=== PATIENT | male | born 1940 | race Caucasian/White ===

== ENCOUNTER 2016-11-15 10:19 | Observation (INO) | payer MEDICARE, MEDICAID ==
[~2016-11-15] VITALS: Ht 167.6 cm; Wt 99.4 kg
[2016-11-15] VITALS (14 sets, daily range): BP systolic 123–168; BP diastolic 71–103
[~2016-11-15 10:19] MED LIST: ARICEPT10 MG PO; ATENOLOL50 MG PO; AVODART0.5 MG PO; ELIGARD45 MG SC; FLOMAX 0.4MG C0.4 MG PO; LASIX 40MG. TAB40 MG; LISINOPRIL 10MG10 MG PO; METOPROLOL 25 M25 MG PO; OXCARBAZEPINE300 M1 PO; OXYBUTYNIN5 MG PO; VITAMIN D1000 IU PO; VITAMIN D32000 I2 PO; VITAMIN D35000 IU PO; VYTORIN 10 MG-11 TAB PO; VYTORIN 10 MG-21 TAB PO; WARFARIN SOD5 MG PO; WARFARIN SODIUM4 MG PO; ZITHROMAX Z-PA250 M1 PO
--- OUTSIDE RECORDS SUMMARY | 2016-11-15 10:30 | External Medical Summary Rpt ---
Author Author [facility] Organization [facility] Address Unknown Phone Unavailable Care Team Providers Care Youth Services Librarian Name Role Phone NICHELLE, (REF) PCP [phone] Encounter [facility] [id number] Date(s): 11/12/16 - 11/12/16 [facility] [address] [place] [address]- Discharge Disposition: OP Self Care or Home Attending Physician: MARCELINO DOMINGUEZ -CAT Admitting Physician: MARCELINO DOMINGUEZ -CAT Referring Physician: MARCELINO DOMINGUEZ -CAT Reason for Visit SHORTNESS OF BREATH Vital Signs No data available for this section Problem List No data available for this section Allergies, Adverse Reactions, Alerts No Known Allergies Medications No data available for this section Results No data available for this section Immunizations No data available for this section Procedures No data available for this section Social History No data available for this section Assessment and Plan No data available for this section Hospital Discharge Instructions No data available for this section
--- OUTSIDE RECORDS SUMMARY | 2016-11-15 10:30 | External Medical Summary Rpt ---
Author Author [facility] Organization [facility] Address Unknown Phone Unavailable Care Team Providers Care [employer] Leader Name Role Phone NICHELLE, (REF) PCP [phone] Encounter [facility] [id number] Date(s): 11/12/16 - 11/12/16 [facility] [address] [place] [address]- Discharge Disposition: OP Self Care or Home [...]
--- OUTSIDE RECORDS SUMMARY | 2016-11-15 10:31 | External Medical Summary Rpt ---
Author Author JOHAN Address Unknown Phone [email or web address] Purpose Continuity of Care Document - through 2016
--- OUTSIDE RECORDS SUMMARY | 2016-11-15 10:31 | External Medical Summary Rpt ---
Author Author , JOHAN Mota JOHAN Address Unknown Phone [email or web address] Team Providers Care Application Tester Name Role Phone Fidel Hickman MD, Unavailable Unavailable Fidel Hickman MD Purpose Continuity of Care Document - 09-09-2012 through 2016 Problems Code Diagnosis DOS Provider Status 998.32 998.32 09-09-2012 Jacinto MONTE [facility] OPERATION (SURGICAL) WOUND Allergies, Adverse Reactions, Alerts Type Allergy to substance Adverse Reaction to Substance Substance Reaction Severity INGREDIENT: NO KNOWN Unknown Unknown - NO KNOWN DRUG ALLERGY Vital Signs 09-09-2012 11:37 Name Value Interpretat Reference Comment ion Range Body 98 [degF] Temperature BP 78 mm[Hg] Diastolic BP Systolic 130 mm[Hg] Heart 51 /min Rate/Pulse O2% 96 % Respiratory 20 /min Rate 09-09-2012 11:33 Name Value Interpretat Reference Comment ion Range BP 78 mm[Hg] Diastolic BP Systolic 130 mm[Hg] Heart 51 /min Rate/Pulse O2% 96 % Respiratory 20 /min Rate Procedures Procedure DOS Code Location Performer Comment NONEXCIS 86.28 Fidel Smith WOUND, INFECT, OR BURN Encounters Encounter Start End Date Code Location Performer Type Date Emergency TONG Hickman (ER) 3 11:25 3 11:45 [facility]
--- OUTSIDE RECORDS SUMMARY | 2016-11-15 10:31 | External Medical Summary Rpt ---
Author Author , JOHAN Mota JOHAN Address Unknown Phone [email or web address] Care Team Providers Care Wrapper Sheeter Name Role Phone Fidel Hickman MD, Unavailable Unavailable Fidel Hickman MD Purpose Continuity of Care Document - 09-09-2012 through 2016 Problems Code Diagnosis DOS Provider Status 998.32 998.32 09-09-2012 Jacinto MONTE [facility] OPERATION (SURGICAL) WOUND Allergies, Adverse Reactions, [...] TONG Hickman (ER) 3 11:25 3 11:45 [facility]
--- OUTSIDE RECORDS SUMMARY | 2016-11-15 10:31 | External Medical Summary Rpt ---
Author Author JOHAN Address Unknown Phone [email or web address] Purpose Continuity of Care Document - through 2016
--- OUTSIDE RECORDS SUMMARY | 2016-11-15 10:33 | External Medical Summary Rpt ---
Demographics Preferred Language Bulgarian Marital Status Unknown Congregation Affiliation Unknown Race Unknown Ethnic Group Unknown Author Author , VANCE PRADO Address Unknown Phone Immunization Unable to retrieve immunization data due to connection failure with Immunization Registry. Please try again later.
--- OUTSIDE RECORDS SUMMARY | 2016-11-15 10:33 | External Medical Summary Rpt ---
Author Author JOHAN Iyer, JOHAN Production Organization [employer] Address Unknown Phone Unavailable Results Basic metabolic panel in Blood Observa Value Referen Units Interpr Notes Date tion ce etation Range Urea 7 - 18 mg/dL High No Nov 11 nitrogen informati 2016 [Mass/vol on in 12:42 PM ume] in source Serum or data Plasma Calcium 8.5 - mg/dL Normal No Nov 11 [Mass/vol 10.1 informati 2016 ume] in on in 12:42 PM Serum or source Plasma data Chloride 98 - 107 mmoL/L Normal No Nov 11 [Moles/vo informati 2016 lume] in on in 12:42 PM Serum or source Plasma data Carbon 21.0 - mmoL/L Normal No Nov 11 dioxide, 32.0 informati 2016 total on in 12:42 PM [Moles/vo source lume] in data Serum or Plasma Creatinin 0.70 - mg/dL Normal No Nov 11 e 1.30 informati 2016 [Mass/vol on in 12:42 PM ume] in source Serum or data Plasma Estimated >60 ML/MIN No REFERENCE Nov 11 informati RANGE: 2017 glomerula on in >60 12:42 PM r source ML/MIN/1. filtratio data 73 SQUARE n rate METERSIf (GF this patient is -A merican, then multiply theresult by 1.210. Glucose 74 - 106 mg/dL High No Nov 11 [Mass/vol informati 2016 ume] in on in 12:42 PM Serum or source Plasma data Potassium 3.5 - 5.1 mmoL/L High No Nov 11 informati 2016 [Moles/vo on in 12:42 PM lume] in source Serum or data Plasma Sodium 136 - 145 mmoL/L Low No Nov 11 [Moles/vo informati 2016 lume] in on in 12:42 PM Serum or source Plasma data CBC W Auto Differential panel in Blood Observa Value Referen Units Interpr Notes Date ti ce etation Range Basophils 0 - 0.2 K/MM3 Normal No Nov 11 informati 2016 [#/volume on in 12:42 PM ] in source Blood by data Automated count Basophils 0.1 - 2.0 % Normal No Nov 11 / inform2016 leukocyte on in 12:42 PM s in source Blood by data Automated count Eosinophi 0.0 - 0.4 K/mm3 Normal No Nov 11 ls inform2016 [#/volume on in 12:42 PM ] in source Blood by data Automated count Eosinophi 0.1 - % Normal No Nov 11 ls/100 12.0 inform2016 leukocyte on in 12:42 PM s in source Blood by data Automated count Granulocy 1.3 - 8.0 K/mm3 Normal No Nov 11 samantha inform2016 [#/volume on in 12:42 PM ] in source Blood by data Automated count Granulocy 37.0 - % Normal No Nov 11 samantha/100 80.0 inform2016 leukocyte on in 12:42 PM s in source Blood by data Automated count Hematocri 42.0 - % Low No Nov 11 t [Volume 52.0 informati 2016 on in 12:42 PM Fraction] source of Blood data Hemoglobi 14.1 - g/dL Low No Nov 11 n 18.0 inform2016 [Mass/vol on in 12:42 PM ume] in source Blood data Lymphocyt 0.7 - 4.5 K/mm3 Low No Nov 11 es 2016 [#/volume on in 12:42 PM ] in source Unspecifi data ed specimen by Automated count Lymphocyt 10 - 50 % Normal No Nov 11 es inform2016 [#/volume on in 12:42 PM ] in source Unspecifi data ed specimen by Automated count Erythrocy 27 - 31.2 pg Normal No Nov 11 te mean 2016 corpuscul on in 12:42 PM ar source hemoglobi data n [Entitic mass] Erythrocy 31.8 - g/dl Normal No Nov 11 te mean 35.4 inform2016 corpuscul on in 12:42 PM ar source hemoglobi data n concentra tion [Mass/vol ume] by Automated count Erythrocy 82.2 - fl Normal No Nov 11 te mean 97.8 2016 corpuscul on in 12:42 PM ar volume source [Entitic data volume] by Automated count Monocytes 0.1 - 1.0 K/mm3 Normal No Nov 112016 [#/volume on in 12:42 PM ] in source Blood by data Automated count Monocytes 1.7 - 9.3 % Normal No Nov 11 /100 2016 leukocyte on in 12:42 PM s in source Blood by data Automated count Platelet 7.4 - fl Normal No Nov 11 mean 10.4 2016 volume on in 12:42 PM [Entitic source volume] data in Blood by Automated count Platelets 142 - 424 K/mm3 Normal No Nov 11 informati 2016 [#/volume on in 12:42 PM ] in source Blood data Erythrocy 4.6 - 6.2 M/mm3 Low No Nov 11 samantha informati 2016 [#/volume on in 12:42 PM ] in source Amniotic data fluid Erythrocy 11.5 - % Normal No Nov 11 te 17.5 2016 distribut on in 12:42 PM ion width source [Entitic data volume] by Automated count Leukocyte 4.8 - K/MM3 Low No Nov 11 s 10.8 2016 [#/volume on in 12:42 PM ] in source Blood data INR in Blood by Coagulation assay Observa Value Referen Units Interpr Notes Date tion ce etation Range INR in 0.9 - 1.1 No High INDICATIO Nov 11 Blood by informati N 2017 Coagulati on in 12:42 PM on assay source INR data RANGETHER APY FOR DVT, PE, ATRIAL FIB; 2.0 - 3.0PROPHY LAXIS FOR VTETHERAP Y FOR MECHANICA L HEART 2.5 - 3.5VALVE; PREVENTIO N OF SYSTEMICE MBOLISM SECONDARY TO AMI Prothromb 9.4 - SECONDS High No Nov 11 in time 11.8 informati 2016 (PT) in on in 12:42 PM Platelet source poor data plasma by Coagulati on assay
--- OUTSIDE RECORDS SUMMARY | 2016-11-15 10:33 | External Medical Summary Rpt ---
Demographics Preferred Language French Marital Status Unknown Muslim Affiliation Unknown Race Unknown Ethnic Group Unknown Author Author , VANCE PRADO Address Unknown Phone Immunization Unable to retrieve immunization data due to connection failure with Immunization Registry. Please try again later.
--- NOTE | 2016-11-15 14:14 | Anesthesia Record ---
Anesthesia Record Part I Total IV fluids: 1700 EBL (ml): 0 Urine Output: 200 B/P: 156/93 % SaO2: 99 Pulse: 67 Resps: 12 Temp: 97 Patient is: Awake, Stable Stable to PACU at: 1405 at 1413
--- NOTE | 2016-11-15 14:14 | Anesthesia Record ---
Anesthesia Record Part II Discharge time: 1435 Destination: Second Floor PACU nurse assessment review? Yes Patient is: Awake, Stable Anesthesia complications? No at 1413
--- NOTE | 2016-11-15 15:20 | RADIOLOGY REPORT PS360 ---
ANKLE-RT-3 VIEWS Ordering Physician: Rodger Apple MD Patient Age: 76 years: Male HISTORY: ORIF OF RT ANKLE -ORIFwith cast placement TECHNIQUE: 3 views right ankle : Postop 3 views AP lateral and oblique view right ankle. FINDINGS Plaster cast or splint has been placed, & now obscuring osseous detail somewhat ORIF right ankle bimalleolar fracture now evident . Metallic plate is been applied to the distal fibula and secured by multiple screws. Good fixation and position at the oblique spiral fracture of distal fibula At the medial malleolus 2 threaded screw provide fixation to the transverse medial malleolus fracture. Good position at the fracture at tip of medial malleolus. Normal relationships at the ankle mortise. Dome of talus appears intact. The skin orquidea evident with medial and lateral IMPRESSION: ... ORIF bimalleolar fracture . Good position of fracture and fixation elements. Good relationships at the ankle joint
--- NOTE | 2016-11-15 16:25 | CONSULT NOTE ---
Standard Demographics Patient Demo Date of Consultation: 11/15/16 Referring Provider: Rodger Apple MD Reason for Consultation: ANTICOAGULANT MANAGEMENT PRIMARY DIAGNOSIS: STATUS POST orif right ANKLE Allergies: Coded Allergies: codeine (Mild, HEART RACE 11/15/16) History of present illness: History of present illness: 76-year-old male who is status post open reduction internal fixation of his RIGHT ankle due to a bimalleolar fracture. I have been consult today as his primary care physician for management of his anticoagulant. Patient has been on warfarin for many years secondary to atrial fibrillation Past medical history: Family HX Family Hx Insignificant No Diabetes Yes CAD Yes Hypertension No Hyperlipidemia No Cancer Yes TB No Immunization HX DT/Tetanus < 1 YR AGO Flu 2015-FSN Pneumonia Received In Past TB Test in last year No General CAD? No Angina: No MS: No Hypertension? Yes Hyperlipidemia? Yes CHF? Yes DVT? No PE? No COPD? Yes Asthma? No Anemia? No GERD? No Gastric ulcers? No GI Bleed? No Hernia? Yes Thyroid Problems? No Hypothyroidism? No CVA? Yes Seizures? Yes Diabetes? No Renal Insuffiency? No UTI? No Stones? No BPH? No GB Disease: No Nephritic Syndrome? No Asplenia? No Hepatitis? No Sickle Cell Disease? No Arthritis? Yes Migraines? No Cataracts? No Glaucoma? No MRSA? No HIV? No TB? No Anxiety? No Depression? No Cancer? Yes Site: PROSTATE-RAD TREATMENTS More? Yes Additional hx: PACEMAKER RESIGHINI Past Surgical HX Previous Surgery?Y LEFT HIP REPLACEMENT APPY HERNIA REPAIR TENDON FINGER TURP HEART CATH 07/04/04 RIGHT HIP REPLACEMENT PACEMAKER INSERTION RIGHT ANKLE SURGERY Current home meds: Reported Medications TAMSULOSIN HCL (Flomax 0.4MG) 0.4 MG PO DAILY OXYBUTYNIN CHLORIDE (Oxybutynin 5MG Tab) 10 MG PO EVENING Leuprolide Acetate (Eligard) 45 MG SC [id number] Donepezil Hydrochloride (Aricept 10MG) 10 MG PO QHS Ezetimibe/Simvastatin (Vytorin 10-20 MG Tablet) 1 TAB PO DAILY Oxcarbazepine 300 MG PO BID LISINOPRIL (Lisinopril) 10 MG PO DAILY ATENOLOL (Atenolol 50MG) 50 MG PO BID CHOLECALCIFEROL (VITAMIN D3) (Vitamin D3) 1,000 IUNITS PO DAILY Warfarin Sodium (Warfarin 4MG) 4 MG PO DAILY Social Hx: Pt is a non-smoker Patient uses alcohol never Patien't marital status is Patient's support system is good Pt uses illicit drugs? No Standard Review of Systems Respiratory No: shortness of breath. Cardiovascular No chest pain, No palpitations Exam: Lab data for last 24 hours: Laboratory Tests 11/15/16 1121: PT 10.8, INR 1.00, APTT 22.2 L Admission vital signs: 1ST Vital Signs Result Date Time B/P 159/91 11/15 1115 Temp 97.8 11/15 1115 Pulse 63 11/15 1115 Resp 18 11/15 1115 Pulse Ox 96 11/15 1122 O2 Delivery OXYGEN 11/15 1517 Exam General appearance: awake, no acute distress ENT: mucous membranes moist Cardiovascular: regular rate & rhythm Respiratory: clear to auscultation ABD: soft, no tenderness Plan: Problem List 1. detention current use of anticoagulants with INR goal of 2.0-3.0 2. History of stroke 3. Dementia 4. Benign prostatic hyperplasia 5. Hypertension Plan: Patient will be given warfarin this evening. We will continue warfarin daily along with his other home medications
--- NOTE | 2016-11-15 16:25 | CONSULT NOTE ---
Standard Demographics Patient Demo Date of Consultation: 11/15/16 Referring Provider: Rodger Apple MD Reason for Consultation: ANTICOAGULANT MANAGEMENT PRIMARY DIAGNOSIS: STATUS POST orif right ANKLE Allergies: Coded Allergies: codeine (Mild, HEART RACE 11/15/16) History of present illness: History of present illness: 76-year-old male who is status post open reduction internal fixation of his RIGHT ankle due to a bimalleolar fracture. I have been consult today as his primary care physician for management of his anticoagulant. Patient has been on warfarin for many years secondary to atrial fibrillation Past medical history: Family HX Family Hx Insignificant No Diabetes Yes CAD Yes Hypertension No Hyperlipidemia No Cancer Yes TB No Immunization HX DT/Tetanus < 1 YR AGO Flu 2015-FSN Pneumonia Received In Past TB Test in last year No General CAD? No Angina: No IN: No Hypertension? Yes Hyperlipidemia? Yes CHF? Yes DVT? No PE? No COPD? Yes Asthma? No Anemia? No GERD? No Gastric ulcers? No GI Bleed? No Hernia? Yes Thyroid Problems? No Hypothyroidism? No CVA? Yes Seizures? Yes Diabetes? No Renal Insuffiency? No UTI? No Stones? No BPH? No GB Disease: No Nephritic Syndrome? No Asplenia? No Hepatitis? No Sickle Cell Disease? No Arthritis? Yes Migraines? No Cataracts? No Glaucoma? No MRSA? No HIV? No TB? No Anxiety? No Depression? No Cancer? Yes Site: PROSTATE-RAD TREATMENTS More? Yes Additional hx: PACEMAKER [place] Past Surgical HX Previous Surgery?Y LEFT HIP REPLACEMENT APPY HERNIA REPAIR TENDON FINGER TURP HEART CATH 07/04/04 RIGHT HIP REPLACEMENT PACEMAKER INSERTION RIGHT ANKLE SURGERY Current home meds: Reported Medications TAMSULOSIN HCL (Flomax 0.4MG) 0.4 MG PO DAILY OXYBUTYNIN CHLORIDE (Oxybutynin 5MG Tab) 10 MG PO EVENING Leuprolide Acetate (Eligard) 45 MG SC [id number] Donepezil Hydrochloride (Aricept 10MG) 10 MG PO QHS Ezetimibe/Simvastatin (Vytorin 10-20 MG Tablet) 1 TAB PO DAILY Oxcarbazepine 300 MG PO BID LISINOPRIL (Lisinopril) 10 MG PO DAILY ATENOLOL (Atenolol 50MG) 50 MG PO BID CHOLECALCIFEROL (VITAMIN D3) (Vitamin D3) 1,000 IUNITS PO DAILY Warfarin Sodium (Warfarin 4MG) 4 MG PO DAILY Social Hx: Pt is a non-smoker Patient uses alcohol never Patien't marital status is Patient's support system is good Pt uses illicit drugs? No Standard Review of Systems Respiratory No: shortness of breath. Cardiovascular No chest pain, No palpitations Exam: Lab data for last 24 hours: Laboratory Tests 11/15/16 1121: PT 10.8, INR 1.00, APTT 22.2 L Admission vital signs: 1ST Vital Signs Result Date Time B/P 159/91 11/15 1115 Temp 97.8 11/15 1115 Pulse 63 11/15 1115 Resp 18 11/15 1115 Pulse Ox 96 11/15 1122 O2 Delivery OXYGEN 11/15 1517 Exam General appearance: awake, no acute distress ENT: mucous membranes moist Cardiovascular: regular rate & rhythm Respiratory: clear to auscultation ABD: soft, no tenderness Plan: Problem List 1. snf current use of anticoagulants with INR goal of 2.0-3.0 2. History of stroke 3. Dementia 4. Benign prostatic hyperplasia 5. Hypertension Plan: Patient will be given warfarin this evening. We will continue warfarin daily along with his other home medications
[2016-11-15 17:14] LABS: URINE BILIRUBIN - DIPSTICK NEGATIVE (NEG); URINE BLOOD TRACE-INTACT (NEG)
--- NOTE | 2016-11-15 23:50 | RADIOLOGY REPORT PS360 ---
ANKLE-RT-3 VIEWS Ordering Physician: Rodger Apple MD Patient Age: 76 years: Male HISTORY: ORIF OF RT ANKLE TECHNIQUE: AP lateral view right ankle FINDINGS ORIF right ankle. Metallic plate is been applied to the distal fibula and secured by multiple screws. Good position is been reestablished with fixation here at this oblique spiral fracture of distal fibula At the medial malleolus a wire was initially placed over which 2 threaded screw were advanced to the right fixation at the medial malleolus. Good position at the fracture at tip of medial malleolus. Normal relationships at the ankle mortise. Dome of talus appears intact. IMPRESSION: ORIF bimalleolar fracture
[2016-11-16 00:09] VITALS: BP 119/75
[2016-11-16 04:28] VITALS: BP 131/77
[2016-11-16 06:33] LABS: HEMOGLOBIN 11.4 g/dL (14.1-18.0); LYMPH # 0.7 K/mm3 (0.7-4.5); LYMPH % 21.2 % (10-50)
--- NOTE | 2016-11-16 06:57 | ACUTE CARE PROGRESS NOTE (QUA) ---
Progress Notes Subjective Date 11/16/16 Time 0655 Note Patient is without complaints this morning. Nursing staff reports patient seemed to sleep well and pain control improved as the evening and night progressed. Patient is in no distress this morning. Lungs are clear. Heart rate is regular. INR is pending Remove Zaragoza catheter. Continue warfarin 4 mg daily. This will need to be followed as an outpatient as well Objective Findings Last VS-Temp:98.4 B/P:131/77 Pulse:60 Resp:16 SaO2:94 ROOM AIR Last weight lbs:219 oz:1 K.366 Method:Bed Scales Laboratory Tests 11/16/16 0605: Sodium 135 L, Potassium 4.4, Chloride 100, Carbon Dioxide 33 H, BUN 20 H, Creatinine 1.3, Estimated Creat Clear 70, Estimated GFR (MDRD) 54, Glucose 118 H, Calcium 8.9, WBC 3.3 L, RBC 3.82 L, Hgb 11.4 L, Hct 34.1 L, MCV 89.2, RDW 13.1, Plt Count 174, MPV 7.6, Gran % 65.2, Gran # 2.2, Lymphocytes % 21.2, Monocytes % 11.4 H, Eosinophils % 1.7, Basophils % 0.4, Lymphocytes # 0.7, Monocytes # 0.4, Eosinophils # 0.1, Basophils # 0.0, PUBS MCHC 33.4, MCH 29.8 11/15/16 1700: Urine Color YELLOW, Urine Appearance CLEAR, Urine pH 6.0, Ur Specific [place] <= 1.005, Urine Protein NEGATIVE, Urine Ketones NEGATIVE, Urine Blood TRACE-INTACT, Urine Nitrate NEGATIVE, Urine Bilirubin NEGATIVE, Urine Urobilinogen 0.2, Ur Leukocyte Esterase NEGATIVE, Urine RBC OCC, Urine WBC OCC, Urine Bacteria TRACE, Urine Glucose NEGATIVE 11/15/16 1121: PT 10.8, INR 1.00, APTT 22.2 L Assessment/Plan 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 History of stroke 3. Dementia 4. Benign prostatic hyperplasia 5. Hypertension Patient condition Stable Plan: continue current care This inpt stay is expected to cross 2 MNs from start of care No
[2016-11-16 07:38] VITALS: BP 132/78
--- NOTE | 2016-11-16 08:45 | PHARMACY CLINIC NOTE ---
Patient Demographics Patient Demographics Admission date: 11/15/16 Date: 11/16/16 Time: 0844 Allergies Coded Allergies: codeine (Mild, HEART RACE 11/15/16) HEIGHT- FT: 5 IN: 6.00 K.366 VTE General Information Labs: Laboratory Tests 11/16 11/16 11/15 0730 0605 1121 Coagulation PT (9.4 - 11.8 SECONDS) 11.2 10.8 INR (0.9 - 1.1) 1.04 1.00 APTT (23.6 - 34.0 SECONDS) 22.2 L Hematology Hgb (14.1 - 18.0 g/dL) 11.4 L Hct (42.0 - 52.0 %) 34.1 L Plt Count (142 - 424 K/mm3) 174 Disclaimer The following section includes nursing documentation that has been pulled in for pharmacy review. Patient's VTE score: 7 Patient's VTE Risk: MOD RISK Clinical trial participant? No VTE prophylaxis NQF 0371 VTE prophylaxis ordered? Yes Type of prophylaxis/treatment: ICD (+ WARFARIN) at 0844
--- NOTE | 2016-11-16 10:29 | Operative Note ---
Procedure/Operative Record Date of Procedure: 12/16/16 Pre-op diagnosis: RIGHT ankle bimalleolar fracture Post-op diagnosis: Same Procedure performed: Open reduction internal fixation RIGHT ankle bimalleolar fracture Surgeon: Rodger Apple Anesthesia: Spinal anesthetic Indications: Displaced bimalleolar ankle fracture in a 76-year-old. Open reduction internal fixation is indicated to help restore anatomy, promote anatomic healing, improved functional outcome, and decrease instability of the ankle Findings: Bone quality was satisfactory. There was, was interval healing with taken place. Description of procedure: The patient taken to the operating room and given a spinal anesthetic. The RIGHT lower extremity was prepped and draped for alcohol and then a formal preparation with chlorhexidine. The toes. He'll and plantar surfaces were sealed. We made a midline incision laterally over the fibular fracture site. After exsanguinating and inflating a tourniquet. We carefully dissected down and incise the periosteum and gently reflected just enough to allow fracture reduction and ORIF to take place. Strict AO technique was utilized. We used a curet to clear soft tissues from the fracture site to allow appropriate interdigitation. This was then held with a clamp and an interfragmentary screw placed. The interfragmentary screw did not provide sufficient purchase secondary to some posterior comminution. A Chester wire was then placed to help hold it while a Devika distal fibular plate was applied. We used locking screws distally and nonlocking screws proximally. This held it in essentially an anatomic position securely. We then irrigated and closed this wound and then turned attention medially. We considered attempting to fix the medial malleolar fragment percutaneously, but the fragment tended to shift with placement of the wire. We then opened it, reduced it, held it with a tenaculum, placed two wires across it , and then over drilled and placed 2 titanium cannulated screws 46 mm length 4.0 diameter. This held the fragment in an anatomic position. Then irrigated and closed in layers with Vicryl for the deep tissues and orquidea for the skin. The patient was placed in a well-padded Michel Richardson type dressing and transported to the recovery room in satisfactory condition. EBL (ml): 5 Implant: Devika titanium plate and screw set, both medially and laterally. The medial screws were cannulated Complications: None at 1021
--- NOTE | 2016-11-16 10:31 | ACUTE CARE PROGRESS NOTE ---
Progress note Date: 11/16/16 Assessment: Postoperative day number one status post RIGHT ankle ORIF. Patient notes minimal pain. He is having some difficulty in following directions and elevating the foot. His daughter is pointed this out to him as well. He seems to have progressed adequately with physical therapy. He is ready for discharge. Capillary refill in the foot appears within normal limits. X-rays show appropriate position of the hardware and alignment of the fracture fragments. No evident complications noted Impression: 1. long term current use of anticoagulants with INR goal of 2.0-3.0 2. History of stroke 3. Dementia 4. Benign prostatic hyperplasia 5. Hypertension Plan: Discharge stay. Continue touchdown weightbearing RIGHT lower extremity. Wheelchair with leg extension and wheeled walker. We'll ask care management to evaluate home situation as well. at [phone]
--- NOTE | 2016-11-16 10:31 | ACUTE CARE PROGRESS NOTE ---
Progress note Date: 11/16/16 Assessment: Postoperative day number one status post RIGHT ankle ORIF. Patient notes minimal pain. He is having some difficulty in following directions and elevating the foot. His daughter is pointed this out to him as well. He seems to have progressed adequately with physical therapy. He is ready for discharge. Capillary refill in the foot appears within normal limits. X-rays show appropriate position of the hardware and alignment of the fracture fragments. 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 History of stroke 3. Dementia 4. Benign prostatic hyperplasia 5. Hypertension Plan: Discharge stay. Continue touchdown weightbearing RIGHT lower extremity. Wheelchair with leg extension and wheeled walker. We'll ask care management to evaluate home situation as well. at [phone]
--- NOTE | 2016-11-16 10:37 | Discharge Summary Report ---
General Admit date: 11/15/16 Discharge date: 11/16/16 Admission Dx: RIGHT ankle bimalleolar ankle fracture Discharge Dx: Same Hospital course: Satisfactory. The patient underwent RIGHT ankle open reduction internal fixation on October 2016. He was admitted overnight for observation and pain control. He progressed well and was seen in physical therapy and instructed on touchdown weightbearing techniques. He is discharged to home today. He has family that we' ll assist him in his care. Care management services of been asked to consult and make recommendations. We provided prescription for a wheeled walker and also a wheelchair with a RIGHT leg extension. We've explained multiple times touchdown weightbearing and how important it is. We have also explained how very important it is for him to elevate the RIGHT lower extremity. He will continue his regular home medications. He is restarted his warfarin. We appreciate Dr. Nelson having seen the patient yesterday and managing his medications. Consultants: Consultants: family medicine Condition at discharge: improved Problem List Medical Problems Benign prostatic hyperplasia Dementia History of stroke Hypertension alf current use of anticoagulants with INR goal of 2.0-3.0 Allergies Coded Allergies: codeine (Mild, HEART RACE 11/15/16) Med Rec DC summary Medications Reported Medications TAMSULOSIN HCL (Flomax 0.4MG) 0.4 MG PO DAILY OXYBUTYNIN CHLORIDE (Oxybutynin 5MG Tab) 10 MG PO EVENING Leuprolide Acetate (Eligard) 45 MG SC [id number] Donepezil Hydrochloride (Aricept 10MG) 10 MG PO QHS Ezetimibe/Simvastatin (Vytorin 10-20 MG Tablet) 1 TAB PO DAILY Oxcarbazepine 300 MG PO BID LISINOPRIL (Lisinopril) 10 MG PO DAILY ATENOLOL (Atenolol 50MG) 50 MG PO BID CHOLECALCIFEROL (VITAMIN D3) (Vitamin D3) 1,000 IUNITS PO DAILY Warfarin Sodium (Warfarin 4MG) 4 MG PO DAILY at 1035
--- NOTE | 2016-11-16 10:37 | Discharge Summary Report ---
General Admit date: 11/15/16 Discharge date: 11/16/16 Admission Dx: RIGHT ankle bimalleolar ankle fracture Discharge Dx: Same Hospital course: Satisfactory. The patient underwent RIGHT ankle open reduction internal fixation on October 2016. He was admitted overnight for observation and pain control. He progressed well and was seen in physical therapy and instructed on touchdown weightbearing techniques. He is discharged to home today. He has family that we' ll assist him in his care. Care management services of been asked to consult and make recommendations. We provided prescription for a wheeled walker and also a wheelchair with a RIGHT leg extension. We've explained multiple times touchdown weightbearing and how important it is. We have also explained how very important it is for him to elevate the RIGHT lower extremity. He will continue his regular home medications. He is restarted his warfarin. We appreciate Dr. Nelson having seen the patient yesterday and managing his medications. Consultants: Consultants: family medicine Condition at discharge: improved Problem List Medical Problems Benign prostatic hyperplasia Dementia History of stroke Hypertension care home current use of anticoagulants with INR goal of 2.0-3.0 Allergies Coded Allergies: codeine (Mild, HEART RACE 11/15/16) Med Rec DC summary Medications Reported Medications TAMSULOSIN HCL (Flomax 0.4MG) 0.4 MG PO DAILY OXYBUTYNIN CHLORIDE (Oxybutynin 5MG Tab) 10 MG PO EVENING Leuprolide Acetate (Eligard) 45 MG SC [id number] Donepezil Hydrochloride (Aricept 10MG) 10 MG PO QHS Ezetimibe/Simvastatin (Vytorin 10-20 MG Tablet) 1 TAB PO DAILY Oxcarbazepine 300 MG PO BID LISINOPRIL (Lisinopril) 10 MG PO DAILY ATENOLOL (Atenolol 50MG) 50 MG PO BID CHOLECALCIFEROL (VITAMIN D3) (Vitamin D3) 1,000 IUNITS PO DAILY Warfarin Sodium (Warfarin 4MG) 4 MG PO DAILY at 1037
[2016-11-16 13:00] VITALS: BP 132/78
== END 2016-11-16 13:00 | disposition home or self-care (01) ==
LOC: SDC 10:19 → 2ND 10:29 → SDC 13:00 → 2ND 15:08
PROVIDERS: Nurse Anesthetist, Certified Registered; Orthopaedic Surgery
PROC: 0QSG04Z Reposition Right Tibia with Internal Fixation Device, Open Approach (ICD-10-PCS; principal; 2016-11-15 13:00)
PROC: 0QSJ04Z Reposition Right Fibula with Internal Fixation Device, Open Approach (ICD-10-PCS; principal; 2016-11-15 13:00)
DX: S82.841A Displaced bimalleolar fracture of right lower leg, initial encounter for closed fracture (principal); W10.8XXA Fall (on) (from) other stairs and steps, initial encounter; Y92.018 Other place in single-family (private) house as the place of occurrence of the external cause; I10 Essential (primary) hypertension; I48.2 Chronic atrial fibrillation; Z79.01 Long term (current) use of anticoagulants; Z86.73 Personal history of transient ischemic attack (TIA), and cerebral infarction without residual deficits; Z95.0 Presence of cardiac pacemaker
CPT/HCPCS: 27814; G8978; G8979; G8980; C1713; C1776; G0378

== ENCOUNTER → 2016-11-30 | Outpatient (CLI) | payer MEDICARE, MEDICAID ==
--- NOTE | 2016-11-30 16:18 | RADIOLOGY REPORT PS360 ---
ANKLE-RT-3 VIEWS HISTORY: Follow-up fracture/ORIF HEALING OF RT ANKLE FX ORDERING PHYSICIAN: Rodger Apple MD PATIENT AGE: 76 years COMPARISON: 11/15/2016 FINDINGS: There is good alignment status post bone plate placement over the distal fibula and 2 screws within the medial malleolus. Fracture lines are not well delineated. There is overlying cast. IMPRESSION: Good alignment status post ORIF bimalleolar fracture.
== END ==
LOC: RAD 15:21
DX: S82.841D Displaced bimalleolar fracture of right lower leg, subsequent encounter for closed fracture with routine healing (principal)